=== PATIENT | male | born 1980 | race Caucasian/White ===

== ENCOUNTER 2023-09-11 09:08 | Day surgery (SDC) | payer OTHER ==
[2023-09-07 12:18] VITALS: BMI 29.0
[2023-09-11 11:44] VITALS: PULSE 76; RESP 16; TEMP 97.1
[2023-09-11 11:58] VITALS: BP 123/75
== END 2023-09-11 12:55 | disposition home or self-care (01) ==
LOC: FASU-ENDO 09:08
PROVIDERS: ATTEND Internal Medicine Gastroenterology
PROC: 0DJD8ZZ Inspection of Lower Intestinal Tract, Via Natural or Artificial Opening Endoscopic (ICD-10-PCS; principal; 2023-09-11 11:14)
DX: Z12.11 Encounter for screening for malignant neoplasm of colon (principal); Z80.0 Family history of malignant neoplasm of digestive organs